=== PATIENT | male | born 1975 | race Asian ===

== ENCOUNTER → 2025-08-05 | Outpatient (CLI) | payer BC ==
[2025-08-05 06:59] LABS: PSA SCREENING 0.79 NG/ML (< 4.00)
[2025-08-05 07:03] LABS: VITAMIN B12 LEVEL 655.0 PG/ML (211-911)
[2025-08-05 07:04] LABS: ALT/SGPT 36.0 U/L (7.0-40); AST/SGOT 22.0 U/L (<34); CALCIUM LEVEL 8.8 MG/DL (8.5-10.1); CARBON DIOXIDE LEVEL 29.0 MMOL/L (20-31); CHLORIDE LEVEL 106.0 MMOL/L (98-107); CHOLESTEROL LEVEL 290.0 MG/DL (<200); CHOLESTEROL RISK RATIO 6.85 (<5); CREATININE FOR GFR 1.15 MG/DL (0.70-1.30); GLOMERULAR FILTRATION RATE 77.1 (>56); LDL CHOLESTEROL 192.5 MG/DL (<100); NON-HDL-C 247.7 MG/DL; POTASSIUM SERUM 4.8 MMOL/L (3.5-5.1); SODIUM LEVEL 143.0 MMOL/L (136-145); TRIGLYCERIDES LEVEL 276.0 MG/DL (<150)
[2025-08-05 08:09] LABS: ESTIMATED AVERAGE GLUCOSE 120.0 MG/DL (60-110)
== END ==
LOC: M LAB 06:05
PROVIDERS: ATTEND Student in an Organized Health Care Education/Training Program
DX: R07.9 Chest pain, unspecified (principal); E78.5 Hyperlipidemia, unspecified